=== PATIENT | male | born 2000 | race African-American/Black ===

== ENCOUNTER 2023-01-13 11:42 | Emergency (ER) | payer MEDICAID ==
[~2023-01-13] VITALS: Ht 180.3 cm; Wt 78.0 kg
[2023-01-13 11:50] VITALS: BP 141/81
[2023-01-13] MEDS ORDERED: ACETAMINOPHEN 325MG TABLET PO ONE (12:45)
[2023-01-13] MEDS ORDERED: LIDOCAINE HCL/PF 1% 10 MG/ML 5ML VIAL INFIL ONE (12:45)
[2023-01-13] MEDS ORDERED: TETANUS, DIPHTHERIA, PERTUSSIS VAC/PF 0.5ML (>10YR OLD) IM ONE (12:45)
[2023-01-13] MEDS ORDERED: BACITRACIN ZINC OINT UDPKT TOP ONE (12:45)
[2023-01-13] MEDS ORDERED: BO1 TP (14:17)
== END 2023-01-13 14:45 | disposition home or self-care (01) ==
LOC: ER 11:42
DX: S01.511A Laceration without foreign body of lip, initial encounter (principal); Y04.2XXA Assault by strike against or bumped into by another person, initial encounter; Y93.89 Activity, other specified; Y92.89 Other specified places as the place of occurrence of the external cause; Y99.8 Other external cause status
CPT/HCPCS: 12013; 90471; 90715; 99283; J3490; Z7610